=== PATIENT | male | born 1995 | race Caucasian/White ===

== ENCOUNTER → 2017-04-01 | Outpatient (CLI) | payer OTHER ==
--- NOTE | 2017-04-01 19:42 | REP ---
LEFT FOOT, FOUR VIEWS: HISTORY: Injury. There is no acute fracture or dislocation. The joint spaces are normal in appearance. IMPRESSION: There is no acute fracture or dislocation. Signed by Shaquille Landry MD 04/01/2017 07:43 P
--- NOTE | 2017-04-01 19:43 | REP ---
LEFT ANKLE, FOUR VIEWS: HISTORY: Injury. There is no acute fracture or dislocation. The joint space is normal in appearance. IMPRESSION: There is no acute fracture or dislocation. Signed by Shaquille Landry MD 04/01/2017 07:45 P
== END ==
LOC: M WUC 18:21
PROVIDERS: ATTEND Physician Assistant
DX: M79.672 Pain in left foot (principal)

== ENCOUNTER 2017-07-07 11:04 | Emergency (ER) | payer OTHER ==
[~2017-07-07] VITALS: Ht 180.3 cm; Wt 106.8 kg
[2017-07-07 11:05] VITALS: BP 142/79
[2017-07-07] MEDS ORDERED: NAPR500T PO (11:47)
== END 2017-07-07 12:06 | disposition home or self-care (01) ==
LOC: M ED 11:04
DX: K40.90 Unilateral inguinal hernia, without obstruction or gangrene, not specified as recurrent (principal)

== ENCOUNTER 2018-02-04 15:37 | Emergency (ER) | payer OTHER ==
[2018-02-04] MEDS: AUGMENTIN 875 MG TAB PO (16:53)
[2018-02-04] MEDS: PERCOCET 5MG/325MG TAB PO (16:53)
== END 2018-02-04 16:55 | disposition home or self-care (01) ==
LOC: M ED 15:37
DX: K05.229 Aggressive periodontitis, generalized, unspecified severity (principal); K02.9 Dental caries, unspecified
CPT/HCPCS: 99282

== ENCOUNTER → 2018-06-16 | Outpatient (REF) | payer OTHER | LOC: M LAB REF 17:03 | DX: J02.9 Acute pharyngitis, unspecified (principal) ==

== ENCOUNTER 2018-06-26 01:45 | Emergency (ER) | payer SELFPAY, OTHER | END 2018-06-26 04:01 | disposition home or self-care (01) | LOC: M ED 01:45 | DX: K12.0 Recurrent oral aphthae (principal) | CPT/HCPCS: 87880 ==

== ENCOUNTER 2018-06-27 18:42 | Emergency (ER) | payer SELFPAY ==
[2018-06-27 21:46] LABS: BASO # 0.1 10^3/uL (0.0-0.2); BASO % 0.4 % (0.0-1.0); EOS # 0.3 10^3/uL (0.0-0.50); EOS % 2.2 % (0.0-3.0); HEMATOCRIT 47.6 % (42.0-52.0); HEMOGLOBIN 15.7 g/dl (13.5-17.5); IMMATURE GRANULOCYTE % 0.5 % (0-3.0); LYMPH # 2.4 10^3/uL (1.5-6.5); LYMPH % 20.3 % (24.0-44.0); MEAN CORPUSCULAR HEMOGLOBIN 29.4 pg (27.0-33.0); MEAN CORPUSCULAR VOLUME 89.1 fl (80.0-96.0); MONO # 0.7 10^3/uL (0.0-0.8); MONO % 6.4 % (0.0-5.0); NEUTROPHILS # 8.1 10^3/uL (1.8-7.7); NEUTROPHILS % 70.2 % (36.0-66.0); PLATELET COUNT, AUTOMATED 381 10^3/uL (150-450); RED BLOOD COUNT 5.34 10^6/uL (4.30-6.10); RED CELL DISTRIBUTION WIDTH 12.3 % (11.5-14.5); WHITE BLOOD COUNT 11.6 10^3/uL (4.0-10.0)
[2018-06-27] MEDS: CEPHALEXIN 500 MG CAP PO (22:15)
== END 2018-06-27 22:24 | disposition home or self-care (01) ==
LOC: M ED 18:42
DX: J02.0 Streptococcal pharyngitis (principal); F90.9 Attention-deficit hyperactivity disorder, unspecified type; F41.9 Anxiety disorder, unspecified; Z79.899 Other long term (current) drug therapy; Z79.52 Long term (current) use of systemic steroids; Z79.2 Long term (current) use of antibiotics; Z85.828 Personal history of other malignant neoplasm of skin
CPT/HCPCS: 85025

== ENCOUNTER 2018-10-10 05:00 | Emergency (ER) | payer OTHER, SELFPAY ==
[2018-10-10 07:34] LABS: CHLAMYDIA DNA AMPLIFICATION NEGATIVE (NEGATIVE); GC DNA AMPLIFICATION NEGATIVE (NEGATIVE)
== END 2018-10-10 06:39 | disposition home or self-care (01) ==
LOC: M ED 05:00
DX: N48.89 Other specified disorders of penis (principal); F41.9 Anxiety disorder, unspecified; F90.9 Attention-deficit hyperactivity disorder, unspecified type; Z85.828 Personal history of other malignant neoplasm of skin
CPT/HCPCS: 87252

== ENCOUNTER 2019-09-18 01:04 | Emergency (ER) | payer MEDICAID, OTHER ==
[~2019-09-18] VITALS: Ht 177.8 cm; Wt 240.0 kg
[2019-09-18 01:04] VITALS: BP 132/80
[~2019-09-18 01:04] MED LIST: AUGM875T28 PO; ESCI10TA2; IBUP80TA; KEFL500C17 PO; NAPR-837 PO; NYST50SS; OXYC1TAB23 PO; PRED20TA; VYVA20CA
== END 2019-09-18 01:20 | disposition left against medical advice (07) ==
LOC: M ED 01:04
DX: Z11.3 Encounter for screening for infections with a predominantly sexual mode of transmission (principal); Z53.21 Procedure and treatment not carried out due to patient leaving prior to being seen by health care provider

== ENCOUNTER → 2019-10-07 | Outpatient (REF) | payer MEDICAID ==
[2019-10-07 20:05] LABS: INFLUENZA A AMPLIFICATION NEGATIVE (NEGATIVE); INFLUENZA B AMPLIFICATION POSITIVE (NEGATIVE)
== END ==
LOC: M LAB REF 17:42
PROVIDERS: ATTEND Physician Assistant
DX: J10.1 Influenza due to other identified influenza virus with other respiratory manifestations (principal)

== ENCOUNTER → 2019-12-16 | Outpatient (REF) | payer OTHER, MEDICAID ==
[2019-12-16 16:49] LABS: BASO # 0.1 10^3/uL (0.0-0.2); BASO % 0.5 % (0.0-1.0); EOS # 0.1 10^3/uL (0.0-0.5); EOS % 0.5 % (0.0-3.0); HEMATOCRIT 53.3 % (42.0-52.0); LYMPH # 2.8 10^3/uL (1.5-5.0); LYMPH % 15.4 % (24.0-44.0); MEAN CORPUSCULAR HEMOGLOBIN 29.3 pg (27.0-33.0); MEAN CORPUSCULAR HGB CONC 31.9 g/dl (32.0-36.5); MEAN CORPUSCULAR VOLUME 91.7 fl (80.0-96.0); MONO # 1.5 10^3/uL (0.0-0.8); MONO % 8.3 % (0.0-5.0); NEUTROPHILS # 13.8 10^3/uL (1.5-8.5); NEUTROPHILS % 74.9 % (36.0-66.0); PLATELET COUNT, AUTOMATED 311 10^3/uL (150-450); RED BLOOD COUNT 5.81 10^6/uL (4.30-6.10); WHITE BLOOD COUNT 18.4 10^3/uL (4.0-10.0)
[2019-12-16 17:33] LABS: HEMOGLOBIN A1c 5.7 %
[2019-12-16 17:37] LABS: ALBUMIN 4.6 GM/DL (3.2-5.2); ALT/SGPT 39 U/L (12-78); BILIRUBIN,TOTAL 0.6 MG/DL (0.2-1.0); BLOOD UREA NITROGEN 17 MG/DL (7-18); CALCIUM LEVEL 9.1 MG/DL (8.5-10.1); CARBON DIOXIDE LEVEL 30 MEQ/L (21-32); CHLORIDE LEVEL 103 MEQ/L (98-107); CHOLESTEROL LEVEL 194 MG/DL (<200); CHOLESTEROL RISK RATIO 4.041 (<5); CREATININE FOR GFR 1.04 MG/DL (0.70-1.30); FREE T4 1.05 NG/DL (0.76-1.46); GLOMERULAR FILTRATION RATE > 60.0 (>60); GLUCOSE, FASTING 85 MG/DL (70-100); HDL CHOLESTEROL 48 MG/DL (>40); LDL CHOLESTEROL 100 MG/DL (<100); NON-HDL-C 146 MG/DL; POTASSIUM SERUM 4.4 MEQ/L (3.5-5.1); SODIUM LEVEL 138 MEQ/L (136-145); TOTAL 25(OH) VITAMIN D 12.6 NG/ML (30.0-100.0); TOTAL PROTEIN 7.7 GM/DL (6.4-8.2); TRIGLYCERIDES LEVEL 229 MG/DL (<150)
== END ==
LOC: M LAB REF 15:55
PROVIDERS: ATTEND Physician Assistant
DX: Z68.37 Body mass index [BMI] 37.0-37.9, adult (principal); E66.09 Other obesity due to excess calories; F41.1 Generalized anxiety disorder; Z83.3 Family history of diabetes mellitus; R63.5 Abnormal weight gain

== ENCOUNTER 2020-09-12 13:27 | Emergency (ER) | payer MEDICAID, OTHER ==
[~2020-09-12] VITALS: Ht 177.8 cm; Wt 130.4 kg
[2020-09-12] MEDS ORDERED: ACETAMINOPHEN 500 MG TAB PO ONE (14:00)
[2020-09-12] MEDS ORDERED: IBUPROFEN 600MG TAB PO ONE (14:00)
[2020-09-12 14:43] VITALS: BP 127/63
== END 2020-09-12 14:44 | disposition home or self-care (01) ==
LOC: M ED 13:27
DX: Z11.59 Encounter for screening for other viral diseases (principal); R05 Cough; R50.9 Fever, unspecified; R53.83 Other fatigue; F90.9 Attention-deficit hyperactivity disorder, unspecified type; Z85.828 Personal history of other malignant neoplasm of skin
CPT/HCPCS: 99283; U0003

== ENCOUNTER 2020-11-19 13:44 | Emergency (ER) | payer OTHER ==
[~2020-11-19] VITALS: Ht 177.8 cm; Wt 129.3 kg
[~2020-11-19 13:44] MED LIST changes: +ESCI10TA16; -ESCI10TA2
[2020-11-19 13:45] VITALS: BP 133/90
--- OUTSIDE RECORDS SUMMARY | 2020-11-19 13:51 | CCD ---
Author Author [facility] Organization [facility] Address Unknown Phone Unavailable Care Team Providers Care Volunteer Services Supervisor Name Role Phone Sherry Tobar COCOA PRESS OPERATOR COCOA PRESS OPERATOR Unavailable Unavailable Tobar, F Sherry COCOA PRESS OPERATOR-BC Unavailable Unavailable Tobar, F Sherry COCOA PRESS OPERATOR-BC Unavailable Unavailable Tobar, F Sherry COCOA PRESS OPERATOR-BC Unavailable Unavailable Tobar, F Sherry COCOA PRESS OPERATOR-BC Unavailable Unavailable Tobar, F Sherry COCOA PRESS OPERATOR-BC Unavailable Unavailable Tobar, F Sherry COCOA PRESS OPERATOR-BC Unavailable Unavailable Tobar, F Sherry COCOA PRESS OPERATOR-BC Unavailable Unavailable Tobar, F Sherry COCOA PRESS OPERATOR-BC Unavailable Unavailable Tobar, F Sherry COCOA PRESS OPERATOR-BC Unavailable Unavailable Tobar, F Sherry COCOA PRESS OPERATOR-BC Unavailable Unavailable Tobar, F Sherry COCOA PRESS OPERATOR-BC Unavailable Unavailable Tobar, F Sherry COCOA PRESS OPERATOR-BC Unavailable Unavailable Tobar, F Sherry COCOA PRESS OPERATOR-BC Unavailable Unavailable Tobar, F Sherry COCOA PRESS OPERATOR-BC Unavailable Unavailable Tobar, F Sherry COCOA PRESS OPERATOR-BC Unavailable Unavailable Tobar, F Sherry COCOA PRESS OPERATOR-BC Unavailable Unavailable Tobar, F Sherry COCOA PRESS OPERATOR-BC Unavailable Unavailable Tobar, F Sherry COCOA PRESS OPERATOR-BC Unavailable Unavailable Tobar, F Sherry COCOA PRESS OPERATOR-BC Unavailable Unavailable Tobar, F Sherry COCOA PRESS OPERATOR-BC Unavailable Unavailable Tobar, F Sherry COCOA PRESS OPERATOR-BC Unavailable Unavailable Tobar, F Sherry COCOA PRESS OPERATOR-BC Unavailable Unavailable Re-disclosure Warning The records that you are about to access may contain information from federally-assisted alcohol or drug abuse programs. If such information is present, then the following federally mandated warning applies: This information has been disclosed to you from records protected by federal confidentiality rules (42 CFR part 2). The federal rules prohibit you from making any further disclosure of this information unless further disclosure is expressly permitted by the written consent of the person to whom it pertains or as otherwise permitted by 42 CFR part 2. A general authorization for the release of medical or other information is NOT sufficient for this purpose. The Federal rules restrict any use of the information to criminally investigate or prosecute any alcohol or drug abuse patient.The records that you are about to access may contain highly sensitive health information, the redisclosure of which is protected by Article 27-F of the [facility] Public Health law. If you continue you may have access to information: Regarding HIV / AIDS; Provided by facilities licensed or operated by the [facility] Office of Mental Health; or Provided by the [facility] Office for People With Developmental Disabilities. If such information is present, then the following [facility] mandated warning applies: This information has been disclosed to you from confidential records which are protected by state law. State law prohibits you from making any further disclosure of this information without the specific written consent of the person to whom it pertains, or as otherwise permitted by law. Any unauthorized further disclosure in violation of state law may result in a fine or penitentiary sentence or both. A general authorization for the release of medical or other information is NOT sufficient authorization for further disc losure. Family History Family Member Name Family Member Gender Family Member Status Date o f Status Description Data Source(s) Unknown Male Problem MEDENT ([facility]) Unknown Unknown Problem [facility] ([facility] mother Encounters Encounter Providers Location Date Indications Data Source(s ) Outpatient Attender: MANJULA PRABHAKAR 01/08/2020 10:38:01 AM EDT [facility] Outpatient Attender: Sherry PRABHAKAR 12/24/2019 12: 43:02 PM [facility] Outpatient Attender: MANJULA PRABHAKAR 12/24/2019 12:43:01 PM [facility] Outpatient Attender: MANJULA PRABHAKAR 12/22/2019 12:44:01 PM [facility] Outpatient Attender: Sherry PRABHAKAR 12/22/2019 12: 43:02 PM [facility] Outpatient Attender: MANJULA PRABHAKAR 12/16/2019 12:07:00 PM [facility] Outpatient Attender: MANJULA PRABHAKAR 12/16/2019 12:06:00 PM [facility] Outpatient Attender: MANJULA PRABHAKAR 12/16/2019 12:05:00 PM [facility] Outpatient Attender: MANJULA PRABHAKAR 12/16/2019 09:18:03 AM [facility] Outpatient Attender: MANJULA PRABHAKAR 12/16/2019 08:38:00 AM [facility] Outpatient Attender: MANJULA PRABHAKAR 12/16/2019 08:33:01 AM [facility] Outpatient Attender: MANJULA PRABHAKAR 12/16/2019 08:19:[address] [facility] Outpatient Attender: MANJULA Tobar COCOA PRESS OPERATOR FP 12/01/2019 01:53:[address] [facility] Outpatient Attender: MANJULA Tobar COCOA PRESS OPERATOR FP 12/01/2019 01:51:[address] [facility] Insurance Providers Payer name Policy type / Coverage type Policy ID Covered libertarian ID Covered libertarian's relationship to lopez Policy Lopez Plan Information [employer] COMMUNITY PLAN MCDHMO [id number] SP [id number] UNHC COMMUNITY PLAN MCDO [id number] SP [id number] EMEDNY [id number] SP [id number] Medicaid S [id number] S [id number] Managed Care - [facility] Community Plan P [id number] S [id number] MEDICAID [id number] SP [id number] Medicaid S [id number] S [id number] United Healthcare Essential Plan P [id number] S [id number] Self Pay P [id number] S [id number] United Healthcare Essential Plan P [id number] S [id number] UNHC COMMUNITY PLAN MCDO [id number] SP [id number] United Healthcare Essential Plan S [id number] S [id number] Self Pay P [id number] S [id number] SELF PAY ONLY [id number] SP [id number] Managed Care - Community Plan United Healthcare P [id number] S [id number] UNHC COMMUNITY PLAN MCDO [id number] SP [id number] Managed Care - Community Plan United Healthcare P [id number] S [id number] Medicaid S [id number] S [id number] United Healthcare [facility] Health Maintenance Organization (HMO) [id number] Self [id number] Managed Care - Community Plan United Healthcare P [id number] S [id number] Medicaid S [id number] S [id number] United [facility] Maintenance Organization (HMO) [id number] Self [id number] UNITED HEALTHCARE(MCAID) O [id number] S [id number] United [facility] Maintenance Organization (HMO) [id number] Self [id number] [facility] (HMO) [id number] Self [id number] United CR/[facility] Maintenance Organization (HMO) [id number] Self [id number] United HLCR/Community [facility] Maintenance Organization (HMO) Self MEDICAID [id number] SP [id number] SELF PAY UNAVAILABLE UNAVAILA BLE [id number] Problems, Conditions, and Diagnoses Code Display Name Description Problem Type Effective Dates Data Source(s) V05.9 Vaccination Vaccination 12/22/2019 12:42:50 PM [facility] [id number] Acute upper respiratory infection, unspe cified Acute upper respiratory infection, unspecified 12/16/2019 09:17:56 AM [facility] [id number] Excessive weight gain Excessive weight gain 12/16/2019 09:17:56 AM [facility] V05.9 Encounter for immunization Encounter for immunization 12/16/2019 09:17:56 AM [facility] V85.37 BMI 37.0-37.9 BMI 37.0-37.9 12/16/2019 09:17:56 AM [facility] 278.00 Obesity Obesity 12/16/2019 09:17:56 AM ES T [facility] 300.02 Generalized anxiety disorder Generalized anxiety disor raul 12/16/2019 09:17:56 AM [facility] V18.0 Family history of diabetes mellitus Family history of diabetes mellitus 12/16/2019 09:17:56 AM [facility] V70.0 Encounter for general adult medical exam ination with abnormal findings Encounter for general adult medical examination with abnormal findings 12/16/2019 09:17:56 AM [facility] Results ID Date Data Source [id number] 09/12/2020 02:18:00 PM EST [facility] Name Value Range Interpretation Code Description Data Kerry rce(s) Supporting Document(s) SARS coronavirus 2 RNA [facility] This lab was ordered by [facility] and reported by [facility]. ID Date Data Source [id number] 12/16/2019 09:40:00 AM [facility] Name Value Range Interpretation Code Description Data Kerry rce(s) Supporting Document(s) HCT 53.3 % 42.0-52.0 H [facility] HGB 17.0 g/dL 13.5-17.5 N [facility] MCH 31.9 G/DL pg 32.0-36.5 L [facility] MCHC 29.3 PG % 27.0-33.0 N [facility] PLATELETS 311 10 10*3/mm3 150-450 N [facility] RBC 5.81 10 10*6/mm3 4.30-6.10 N [facility] RDW 13.1 % 11.5-14.5 N [facility] WBC TOTAL 18.4 4.0-10.0 H [facility] ID Date Data Source [id number] 12/16/2019 09:40:00 AM [facility] Name Value Range Interpretation Code Description Data Kerry rce(s) Supporting Document(s) HGBA1C 5.7 % N [facility] ID Date Data Source [id number] 12/16/2019 09:40:00 AM [facility] Name Value Range Interpretation Code Description Data Kerry rce(s) Supporting Document(s) BG FASTING 85 mg/dL 70-100 N [facility] T4, FREE 1.05 ng/dL 0.76-1.46 N [facility] TSH 1.320 microintl units/mL 0.358-3.740 N [facility] VIT D25 TOT 12.6 ng/mL 30.0-100.0 L [facility] ID Date Data Source [id number] 12/16/2019 08:37:09 AM [facility] Measurements & CalculationsHeight: 70 inches (5 ft. 10 in.) 177.80 cm Weight: 261 pounds 118.64 kg Body Mass Index (BMI): 37.58BMI Interpretation: ObeseBody Surface Area (BSA): 2.34Weight Management Education Done (Nutrition/Physical Activity)Vital SignsTemperature: 97.7F oral Pulse Rate: 73 beats/minuteRespiratory Rate: 17 respirations/minuteBlood Pressure: 133/82 right arm sitting automaticO2 Saturation: 96% room airVital Signs performed by: Jenna Lynne LPN, December 16, 2019 8:55 AMVital Signs performed by: Trino MURPHY, December 16, 2019 8:57 AMInitial Intake Information from: patientRoom #: 7Smoking, Tobacco, Vaping or Smoke Exposure StatusSmoke Status: never smokerTobacco Use: NoDo you vape? NoPassive Smoke Exposure: YesPassive Smoke Exposure comments: insideHealthcare HistorySince your last office visit...Have you been admitted to the hospital? NoHave you been to an emergency room (ER) or urgent care clinic? Yes - [facility] ([facility]) or urgent care date reported today: 12/10/2019Have you seen another healthcare provider? NoHave you seen a dentist? NoRate Your HealthIn general, would you say your health is? GoodPain AssessmentAre you currently having any pain which... You would like your provider to address? No Affects your activity level? NoDepression Screening - PHQ-2Over the last two weeks, have you... Had little interest or pleasure in doing things? Several days Been feeling down, depressed, or hopeless? Several days PHQ-2 Score: 2Anxiety Screening - JANUSZ-2Over the last two weeks, have you been... Feeling nervous, anxious, or on edge? Nearly every day Unable to stop or control worrying? Nearly every day JANUSZ-2 Score: 6Infectious Disease / Travel ScreeningRecent travel for you, your family, and/or any sexual partners? NoGeneralized Anxiety Disorder 7-Item Screening (JANUSZ-7)Answer Guide:0 = Not at all1 = Several days2 = Over half the days3 = Nearly every dayOver the last 2 weeks, how often have you been bothered by the following problems?Feeling nervous, anxious, or on edge: 3Not being able to stop or control worryinWorrying too much about different things: 3Trouble relaxinBeing so restless that it's hard to sit still: 2Becoming easily annoyed or irritable: 1Feeling afraid as if something awful might happen: 2Answer Guide:0 = Not difficult at all1 = Somewhat difficult2 = Very difficult3 = Extremely difficultHow difficult have these made it for you to do your work, take care of things at home, or get along with other people? 2GAD-7 Screening Results JANUSZ-2 Score: 6GAD-7 Score: 17Functional Impairment: Very difficultRecommendation: Severe anxietyPHQ-9 1. Over the last 2 weeks, patient reports the following frequency of symptoms: a. Little interest or pleasure in doing things - Several days b. Feeling down, depressed, or hopeless -Several days c. Trouble falling asleep, staying asleep, or sleeping too much -Nearly every day d. Feeling tired or having little energy -Nearly every day e. Poor appetite or overeating -Several days f. Feeling bad about yourself, feeling that you are a failure, or feeling that you have let yourself or your family down -Nearly every day g. Trouble concentrating on things such as reading the newspaper or watching television -Nearly every day h. Moving or speaking so slowly that other people could have noticed. Or being so fidgety or restless that you have been moving around a lot more than usual -More than half the days i. Thinking that you would be better off or that you want to hurt yourself in some way -Not at all2. If you checked off any problems, how difficult have these problems made it for you to do your work, take care of things at home, or get along with other people? -Very DifficultToday's PHQ-9 Results Score: 17 Severity: Moderately Severe Diagnosis Recommendation: No recommendation Functional Impairment: Very DifficultDepression Screening Follow-Up ActionToday's Follow-Up Action Depression follow-up done. Follow-Up Action: Prescribed antidepressant medicationPRAPARE Sociodemographic Characteristics Race: White Ethnicity: Not or Preferred Language: EnglishFamily and Home Address: [address] [place] [address] What is your housing situation today? I have housing Are you worried about losing your housing? NoMoney and Resources What is the highest level of school that you have finished? some college Employed? 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 Denies Insecurity: food, utilities, clothing, early childhood worker, phone, legal services, otherIn the past year, have you had trouble affording costs associated with health insurance (such as deductibles, co-payments, etc.)? NoSocial and Emotional Health How often do you see or talk to people that you care about and feel close to? More than 5 times a week How stressed are you? Very muchAdditional Optional Domains In the past 3 months, have you spent more than 2 nights in a row in a penitentiary, group home, snf center or juvenile correctional facility? No Has lack of transportation kept you from medical appointments or from getting your medications? NoIn the past year, have you had trouble getting any of the following when it was really needed (check all that apply)?noneIn the past year, have you had trouble paying the costs associated with health care or medicine (such as co-payments, costs for services, prices of medicines)? NoHow confident are you that you can control and manage most of your health problems? Very confident Are you a refugee? No (Country of origin: [facility]) Do you feel physically and emotionally safe where you live? Yes In the past year, have you been afraid of a partner, ex-partner? NoScreening, Brief Intervention, & Referral to Treatment (SBIRT)Pre-Screening Questions How many times have you have 5 or more drinks in a day? 6How many times have you used an illegal drug or used a prescription medication for a non-medical reason? 0Performed by: Jenna Lynne LPN, December 16, 2019 8:50 AMPatient History Medical History:wears glassesAttention Deficit Disorder with HyperactivityAnxiety/DepressionSurgical History:tonsillectomycancerous mole removed from right side of abdomen as childFamily History:FH Hepatitis - mother and FatherFH Diabetes - Maternal grandparents and paternal grandmotherLyme Disease (Father)Mother- bipolarSocial/Personal History:Lives Aunt and Uncle 1 younger sister , 1 younger cousinFather lives here in [place], daily contact with FatherMother also lives here in [place], ocassional contact Alcohol Use: CurrentlyFrequency: holidays/special occasions onlyAlcohol Education: givenDrug Use: NeverChief Complaintannual examHistory of Present Illness (HPI)24 yo male here for annual PE. Refuses flu vaccine today. Due for Tdap, last in 2005. Pt states he has had about a 20 lb weight gain in the past 2.5 months and a couple days of constantly needing to urinate. Pt states he would like to lose some weight and make better choices. He reports he likes sweets and his girlfriend likes fast food. Pt state he has had some post nasal drainage over the last week. Pt reports he is on prednisone taper, last dose today. Put on this by [employer] for laryngitis reportedly. Pt reports anxiety/depression. Reports "really bad highs and lows". Pt previously took Lexapro, only side effect was fidgity, but states he was taking Vyvanse at the same time as well. HPI performed by: Trino MURPHY, December 16, 2019 8:57 AMTransitions of Care InboundProblem ReviewProblem List was reviewed and/or updated during this visit.Medication Reconciliation & ReviewMedication List was reviewed and/or updated during this visit, including review of any [id number] medications, herbal therapies, and/or supplements.Allergy ReviewAllergy List was reviewed and/or updated during this visit.Adult Preventive CareProvider Calculated and Reviewed all Clinical Protocols for patient today. Labs/Meds/Other Counseling- Nutrition and Physical Activity:BMI Interpretation: Obese (12/16/2019) Counseling: Done (12/16/2019) Physical Activity: Done (12/16/2019)Review of Systems General: Denies loss of appetite, chills, dizziness, fatigue, fever, headache, feeling ill. Eyes: Denies blurring of vision, double vision. Ears/Nose/Throat: Complains of nasal congestion. Denies earache, sore throat, difficulty swallowing, swollen glands. Cardiovascular: Denies chest pain, palpitations, feeling faint. Respiratory: Denies cough, shortness of breath, wheezing. Gastrointestinal: Denies nausea, vomiting, diarrhea, constipation, pain or discomfort. Musculoskeletal: Denies joint pain, body aches. Skin: Denies rash, suspicious lesions. Neurologic: Denies weakness, numbness/tingling. Psychiatric: Complains of see HPI, depression, anxiety. Denies suicidal ideation. Physical ExamGeneral Appearance: well nourished, well hydrated, no acute distressEyes, External: conjunctivae and lids normal, EO MIExternal Ears: normal, no lesions or deformitiesHearing: grossly intactOtoscopy: canals clear, tympanic membranes intact, no fluid, light reflex intact bilaterallyExternal Nose: normal, no lesions or deformitiesNasal: mucosa, septum, and turbinates normal, nares patentLips/Teeth/Gums: no gingival inflammation, no labial lesionsPharynx: tongue normal, posterior pharynx without erythema or exudate, no thrush/aphthous ulcerNeck: supple, no masses, trachea midline, full range of motion of neckThyroid: no nodules, masses, tenderness, or enlargementRespiratory, Auscultation: clear to auscultation bilaterally; no rales, rhonchi, or wheezesRespiratory, Effort: no intercostal retractions or use of accessory musclesCardiovascular, Auscultation: S1, S2 audible; no murmur, rub, or gallop; RRRPeripheral Circulation: no clubbing, cyanosis, edema, or varicositiesAbdomen: soft, non-tender, no masses, bowel sounds normalGait & Station: normalSkin, Inspection: no rashes, lesions, or ulcerationsOrientation: oriented to time, place, and personMood & Affect: no depression, anxiety, or agitationJudgment & Insight: intactCare Management Plan Care Team Assigned Risk Level: dTransitions of CareInboundRate Your HealthIn general, would you say your health is? GoodAssessment & Plan Problems:Added: Vaccination (ICD-V05.9) (ICD10- Z23)Encounter for general adult medical examination with abnormal findings (ICD- V70.0) (UFY46-S94.01) Assessment: Instructions: Recommend annual medical appointments. Recommend routine dental and vision care. Recommend influenza vaccines annually and tetanus boosters every 10 years.Family history of diabetes mellitus (ICD-V18.0) (QLL94-K14.3) Assessment: Instructions: Fasting labs have been ordered for you today. Will notify you of results.Generalized anxiety disorder (ICD-300.02) (WQO35-W35.1) Assessment: Instructions: As above.Obesity (ICD-278.00) (TVK18-Z13.09) Assessment: Instructions: Recommend healthy lifestyle modification. Encourage portion control, healthy food choices, and increasing routine physical activity. Recommendation is for 150 minutes throughout the week of cardiovascular exercise.BMI 37.0-37.9 (ICD-V85.37) (JOJ47-D78.37) Assessment: Instructions: As above.Excessive weight gain (UMR35-B47.5) Assessment: Instructions: As above.Encounter for immunization (ICD-V05.9) (LKC09-Q22) Assessment: Instructions: Tdap today.Acute upper respiratory infection, unspecified (NYN27-Z53.9) Assessment: Instructions: Finish prednisone today. Recommend supportive measures, increase rest, plenty of fluids. May use Zyrtec or Mucinex as needed.Assessed:Chronic depression (ICD-311) (FWQ10-G43.1) Assessment: Instructions: Start Lexapro 10mg once daily. Call for any concerns. Follow-up in 1 month. If symptoms become difficult to manage, consider psychiatry referral in the future.Attention-deficit hyperactivity disorder, combined type (NVL72-N42.2) Assessment: Instructions: Will hold off on treatment of ADHD at this time. As above.Removed:EYE PAIN, LEFT (ICD- 379.91) (MZA80-L08.12), Acute pharyngitis due to other specified organisms (QAO11-X98.8)Patient Instructions/Care Plan: Encounter for general adult medical examination with abnormal findings: Recommend annual medical appointments. Recommend routine dental and vision care. Recommend influenza vaccines annually and tetanus boosters every 10 years.Family history of diabetes mellitus: Fasting labs have been ordered for you today. Will notify you of results.Chronic depression: Start Lexapro 10mg once daily. Call for any concerns. Follow-up in 1 month. If symptoms become difficult to manage, consider psychiatry referral in the future.Generalized anxiety disorder: As above.Attention-deficit hyperactivity disorder- combined type: Will hold off on treatment of ADHD at this time. As above.Obesity: Recommend healthy lifestyle modification. Encourage portion control, healthy food choices, and increasing routine physical activity. Recommendation is for 150 minutes throughout the week of cardiovascular exercise.BMI 37.0-37.9: As above.Excessive weight gain: As above.Encounter for immunization: Tdap today.Acute upper respiratory infection- unspecified: Finish prednisone today. Recommend supportive measures, increase rest, plenty of fluids. May use Zyrtec or Mucinex as needed. Plan developed in collaboration with patient and/or familyM edications:LEXAPRO 10 MG ORAL TABLETIBUPROFEN 800 MG TABSMedication Changes:New Prescription:LEXAPRO 10 MG ORAL TABLET-Take 1 tablet by mouth once daily Qty: 30[Tablet] Refills: 1 Method: ElectronicRemoved:AMOXICILLIN 500 MG CAPS-1 tablet by mouth every 8 hours until gone, LEXAPRO 10 MG ORAL TABLET-One tablet by mouth every day, VYVANSE 20 MG ORAL CAPSULE-One po qd.Allergies:* SEASONAL ALLERGIES (Mild)Orders:Tdap (5) [CPT-44616] COMP METABOLIC PANEL [CPT-36770] CBC W/DIFF [CPT-85572] HgBA1c [CPT-55491] LIPID PANEL [CPT-90066] TSH [CPT-75618] T- 4 free [CPT-10285] Vitamin D 250H Unspecified [CPT-13232] 79199-Tes Vst-Est Level I [CPT-98733] 28155 - Venipuncture [CPT-16543] 29326 - Immo Admin (over 19 yrs), 1st Vaccine [CPT-80122] Preventive, Est, (18-39) [CPT-64866] Follow-Up Return to clinic: in 4 weeks for follow upAdditional Follow-Up: med follow- upClinical Visit Summary CompletedMedications:LEXAPRO 10 MG ORAL TABLET (ESCITALOPRAM OXALATE) Take 1 tablet by mouth once daily #30[Tablet] x 1 Route:ORAL Entered and Authorized by: Trino MURPHY Method used: Electronically to [facility]* (retail) [address] [place] [address] Fax: Note to Pharmacy: Route: ORAL; Indications: CHRONIC DEPRESSION RxID: [id number]][Immunization Management]Labs In-House Blood TestsDate/Time Collected: December 16, 2019 9:50 AMTest Result Reference Range Normal ValueComments: blood draw done in office done in the right ac tolerated well Praveen Alexis MA, December 16, 2019 9:50 AMThe patient was counseled by the physician on immunizations due, and on the risks and benefits of immunizations.Vaccines Administered/Entered:Vaccination Group: InfluenzaSeries: 2 NOT GIVENVaccination: Flucelvax Quadrivalent PF (4y+) AdultReason Not Given: Patient decisionEntered Date: 12/16/2019 12:00 AMEntered by: Jenna Lnyne LPN Vaccination Group: TdapSeries: 1Vaccination: Boostrix - AdultMfr / Lot# / Exp.Date: BOLD Guidance / 745N2 / 2Amt. Given / Route / Site: 0.5 mL / IM / Left DeltoidNDC / CVX: [id number] / 115Administered Date: 12/16/2019 10:35VFC Eligibility: Not VFC EligibleVIS Date: 12/14/2014VIS Given / VIS Given On: Yes / 12/16/2019Comments: Administered by: Jenna Lynne LPN Name Value Range Interpretation Code Description Data Kerry rce(s) Supporting Document(s) Procedure
--- OUTSIDE RECORDS SUMMARY | 2020-11-19 14:32 | CCD ---
Author Author [facility] Organization [facility] Address Unknown Phone Unavailable Care Team Providers Care Signal Supervisor Name Role Phone Sherry Tobar HEALTH AND FITNESS PROFESSOR HEALTH AND FITNESS PROFESSOR Unavailable Unavailable Tobar, F Sherry HEALTH AND FITNESS PROFESSOR-BC Unavailable Unavailable Tobar, F Sherry HEALTH AND FITNESS PROFESSOR-BC Unavailable Unavailable Tobar, F Sherry HEALTH AND FITNESS PROFESSOR-BC Unavailable Unavailable Tobar, F Sherry HEALTH AND FITNESS PROFESSOR-BC Unavailable Unavailable Tobar, F Sherry HEALTH AND FITNESS PROFESSOR-BC Unavailable Unavailable Tobar, F Sherry HEALTH AND FITNESS PROFESSOR-BC Unavailable Unavailable Tobar, F Sherry HEALTH AND FITNESS PROFESSOR-BC Unavailable Unavailable Tobar, F Sherry HEALTH AND FITNESS PROFESSOR-BC Unavailable Unavailable Tobar, F Sherry HEALTH AND FITNESS PROFESSOR-BC Unavailable Unavailable Tobar, F Sherry HEALTH AND FITNESS PROFESSOR-BC Unavailable Unavailable Tobar, F Sherry HEALTH AND FITNESS PROFESSOR-BC Unavailable Unavailable Tobar, F Sherry HEALTH AND FITNESS PROFESSOR-BC Unavailable Unavailable Tobar, F Sherry HEALTH AND FITNESS PROFESSOR-BC Unavailable Unavailable Tobar, F Sherry HEALTH AND FITNESS PROFESSOR-BC Unavailable Unavailable Tobar, F Sherry HEALTH AND FITNESS PROFESSOR-BC Unavailable Unavailable Tobar, F Sherry HEALTH AND FITNESS PROFESSOR-BC Unavailable Unavailable Tobar, F Sherry HEALTH AND FITNESS PROFESSOR-BC Unavailable Unavailable Tobar, F Sherry HEALTH AND FITNESS PROFESSOR-BC Unavailable Unavailable Tobar, F Sherry HEALTH AND FITNESS PROFESSOR-BC Unavailable Unavailable Tobar, F Sherry HEALTH AND FITNESS PROFESSOR-BC Unavailable Unavailable Tobar, F Sherry HEALTH AND FITNESS PROFESSOR-BC Unavailable Unavailable Tobar, F Sherry HEALTH AND FITNESS PROFESSOR-BC Unavailable Unavailable Re-disclosure Warning The records that [...] is protected by Article 27-F of the [facility] Public Health law. If you continue you may have access to information: Regarding HIV / AIDS; Provided by facilities licensed or operated by the [facility] Office of Mental Health; or Provided by the [facility] Office for People With Developmental Disabilities. If such information is present, then the following [facility] mandated warning applies: This information has [...] law may result in a fine or usp sentence or both. A general authorization for [...] Attender: MANJULA PRABHAKAR 01/08/2020 10:38:01 AM EDT [facility] Outpatient Attender: Sherry PRABHAKAR 12/24/2019 12: 43:02 PM [facility] Outpatient Attender: MANJULA PRABHAKAR 12/24/2019 12:43:01 PM [facility] Outpatient Attender: MANJULA PRABHAKAR 12/22/2019 12:44:01 PM [facility] Outpatient Attender: Sherry PRABHAKAR 12/22/2019 12: 43:02 PM [facility] Outpatient Attender: MANJULA PRABHAKAR 12/16/2019 12:07:00 PM [facility] Outpatient Attender: MANJULA PRABHAKAR 12/16/2019 12:06:00 PM [facility] Outpatient Attender: MANJULA PRABHAKAR 12/16/2019 12:05:00 PM [facility] Outpatient Attender: MANJULA PRABHAKAR 12/16/2019 09:18:03 AM [facility] Outpatient Attender: MANJULA PRABHAKAR 12/16/2019 08:38:00 AM [facility] Outpatient Attender: MANJULA PRABHAKAR 12/16/2019 08:33:01 AM [facility] Outpatient Attender: MANJULA PRABHAKAR 12/16/2019 08:19:01 AM EST [facility] Outpatient Attender: MANJULA Tobar HEALTH AND FITNESS PROFESSOR FP 12/01/2019 01:53:01 PM EST [facility] Outpatient Attender: MANJULA Tobar HEALTH AND FITNESS PROFESSOR FP 12/01/2019 01:51:00 PM EST [facility] Insurance Providers Payer name Policy type / Coverage type Policy ID Covered alliance party ID Covered alliance party's relationship to lopez Policy Lopez Plan Information [employer]HC COMMUNITY PLAN MCDHMO [id number] SP [id number] UNHC COMMUNITY PLAN MCDO [id number] SP [id number] [place] [id number] SP [id number] Medicaid S [id number] S [id number] Managed Care - [facility] Community Plan P [id number] S [id number] MEDICAID [id number] SP [id number] Medicaid S [id number] S [id number] United Healthcare Essential Plan P [id number] S [id number] Self Pay P [id number] S [id number] United Healthcare Essential Plan P [id number] S [id number] UNHC COMMUNITY PLAN MCDO [id number] SP [id number] United Healthcare Essential Plan S [id number] S [id number] Self Pay P [id number] S [id number] SELF PAY ONLY [id number] SP [id number] Managed Care - Community Plan United Healthcare P [id number] S [id number] UNHC COMMUNITY PLAN MCDO [id number] SP [id number] Managed Care - Community Plan United Healthcare P [id number] S [id number] Medicaid S [id number] S [id number] United Healthcare [facility] Health Maintenance Organization (HMO) [id number] Self [id number] Managed Care - Community Plan United Healthcare P [id number] S [id number] Medicaid S [id number] S [id number] United [facility] Health Maintenance Organization (HMO) [id number] Self [id number] UNITED HEALTHCARE(MCAID) O [id number] S [id number] United [facility] Health Maintenance Organization (HMO) [id number] [facility] [id number] [facility] ([facility]) [id number] Self [id number] United CR/Community [facility] Health Maintenance Organization (HMO) [id number] Self [id number] United HLCR/Community [facility] Health Maintenance Organization (HMO) Self MEDICAID [id number] SP [id number] SELF PAY UNAVAILABLE UNAVAILA BLE [id number] Problems, Conditions, and Diagnoses Code Display Name Description Problem Type Effective Dates Data Source(s) V05.9 Vaccination Vaccination 12/22/2019 12:42:50 PM [facility] [id number] Acute upper respiratory infection, unspe cified Acute upper respiratory infection, unspecified 12/16/2019 09:17:[address] [facility] [id number] Excessive weight gain Excessive weight gain 12/16/2019 09:17:56 AM [facility] V05.9 Encounter for immunization Encounter for immunization 12/16/2019 09:17:56 AM [facility] V85.37 BMI 37.0-37.9 BMI 37.0-37.9 12/16/2019 09:17:56 AM [facility] 278.00 Obesity Obesity 12/16/2019 09:17:56 AM ES T [facility] 300.02 Generalized anxiety disorder Generalized anxiety disor raul 12/16/2019 09:17:56 AM [facility] V18.0 Family history of diabetes mellitus Family history of diabetes mellitus 12/16/2019 09:17:56 AM [facility] V70.0 Encounter for general adult medical exam ination with abnormal findings Encounter for general adult medical examination with abnormal findings 12/16/2019 09:17:56 AM [facility] Results ID Date Data Source [id number] 09/12/2020 02:18:00 PM EST [facility] Name Value Range Interpretation Code Description Data Kerry rce(s) Supporting Document(s) SARS coronavirus 2 RNA [facility] This lab was ordered by [facility] and reported by [facility]. ID Date Data Source [id number] 12/16/2019 09:40:00 AM [facility] Name Value Range Interpretation Code Description Data Kerry rce(s) Supporting Document(s) HCT 53.3 % 42.0-52.0 H [facility] HGB 17.0 g/dL 13.5-17.5 N [facility] MCH 31.9 G/DL pg 32.0-36.5 L [facility] MCHC 29.3 PG % 27.0-33.0 N [facility] PLATELETS 311 10 10*3/mm3 150-450 N [facility] RBC 5.81 10 10*6/mm3 4.30-6.10 N [facility] RDW 13.1 % 11.5-14.5 N [facility] WBC TOTAL 18.4 4.0-10.0 H [facility] ID Date Data Source [id number] 12/16/2019 09:40:00 AM [facility] Name Value Range Interpretation Code Description Data Kerry rce(s) Supporting Document(s) HGBA1C 5.7 % N [facility] ID Date Data Source [id number] 12/16/2019 09:40:00 AM [facility] Name Value Range Interpretation Code Description Data Kerry rce(s) Supporting Document(s) BG FASTING 85 mg/dL 70-100 N [facility] T4, FREE 1.05 ng/dL 0.76-1.46 N [facility] TSH 1.320 microintl units/mL 0.358-3.740 N [facility] VIT D25 TOT 12.6 ng/mL 30.0-100.0 L [facility] ID Date Data Source [id number] 12/16/2019 08:37:09 AM [facility] Measurements & CalculationsHeight: 70 inches (5 ft. [...] or Preferred Language: EnglishFamily and Home Address: [address] [place] [address] What is your housing situation today? I have housing Are you worried about losing your housing? NoMoney and Resources What is the highest level of school that you have finished? some college Employed? 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 Denies Insecurity: food, utilities, clothing, child care worker, phone, legal services, otherIn the past [...] 2 nights in a row in a usp, chcf, penitentiary center or juvenile correctional facility? No Has [...] you a refugee? No (Country of origin: [facility]) Do you feel physically and emotionally safe [...] , 1 younger cousinFather lives here in [place], daily contact with FatherMother also lives here in [place], ocassional contact Alcohol Use: CurrentlyFrequency: holidays/special occasions [...] last dose today. Put on this by [facility] for laryngitis reportedly. Pt reports anxiety/depression. Reports [...] during this visit, including review of any wqxs-aga-mkxostk medications, herbal therapies, and/or supplements.Allergy ReviewAllergy List [...] medical examination with abnormal findings (ICD- V70.0) (XOG31-B17.01) Assessment: Instructions: Recommend annual medical appointments. Recommend routine dental and vision care. Recommend influenza vaccines annually and tetanus boosters every 10 years.Family history of diabetes mellitus (ICD-V18.0) (HIQ27-F03.3) Assessment: Instructions: Fasting labs have been ordered for you today. Will notify you of results.Generalized anxiety disorder (ICD-300.02) (HMF25-Z45.1) Assessment: Instructions: As above.Obesity (ICD-278.00) (YMK21-Z71.09) Assessment: Instructions: Recommend healthy lifestyle modification. Encourage portion control, healthy food choices, and increasing routine physical activity. Recommendation is for 150 minutes throughout the week of cardiovascular exercise.BMI 37.0-37.9 (ICD-V85.37) (IPQ07-E50.37) Assessment: Instructions: As above.Excessive weight gain (BGI27-S44.5) Assessment: Instructions: As above.Encounter for immunization (ICD-V05.9) (VGO63-W13) Assessment: Instructions: Tdap today.Acute upper respiratory infection, unspecified (QBW71-D89.9) Assessment: Instructions: Finish prednisone today. Recommend supportive measures, increase rest, plenty of fluids. May use Zyrtec or Mucinex as needed.Assessed:Chronic depression (ICD-311) (TAN70-E53.1) Assessment: Instructions: Start Lexapro 10mg once daily. Call for any concerns. Follow-up in 1 month. If symptoms become difficult to manage, consider psychiatry referral in the future.Attention-deficit hyperactivity disorder, combined type (JHD21-S15.2) Assessment: Instructions: Will hold off on treatment of ADHD at this time. As above.Removed:EYE PAIN, LEFT (ICD- 379.91) (DUH08-I87.12), Acute pharyngitis due to other specified organisms (URT09-N26.8)Patient Instructions/Care Plan: Encounter for general adult medical [...] CAPSULE-One po qd.Allergies:* SEASONAL ALLERGIES (Mild)Orders:Tdap (5) [CPT-23334] COMP METABOLIC PANEL [CPT-01620] CBC W/DIFF [CPT-68483] HgBA1c [CPT-44280] LIPID PANEL [CPT-68708] TSH [CPT-38588] T- 4 free [CPT-67684] Vitamin D 250H Unspecified [CPT-79436] 33070-Agz Vst-Est Level I [CPT-31197] 09061 - Venipuncture [CPT-64273] 11998 - Immo Admin (over 19 yrs), 1st Vaccine [CPT-32075] Preventive, Est, (18-39) [CPT-12997] Follow-Up Return to clinic: in 4 weeks for follow upAdditional Follow-Up: med follow- upClinical Visit Summary CompletedMedications:LEXAPRO 10 MG ORAL TABLET (ESCITALOPRAM OXALATE) Take 1 tablet by mouth once daily #30[Tablet] x 1 Route:ORAL Entered and Authorized by: Trino MURPHY Method used: Electronically to [facility]* (retail) [address] [place] [address] Fax: Note to Pharmacy: Route: ORAL; Indications: CHRONIC DEPRESSION RxID: [id number]][Immunization Management]Labs In-House Blood TestsDate/Time Collected: December 16, [...] decisionEntered Date: 12/16/2019 12:00 AMEntered by: Jenna Lynne LPN Vaccination Group: TdapSeries: 1Vaccination: Boostrix - AdultMfr / Lot# / Exp.Date: Bookitit / [id number] / 2Amt. Given / Route / Site: 0.5 mL / IM / Left DeltoidNDC / CVX: [id number] / 115Administered Date: 12/16/2019 10:35VFC Eligibility: Not VFC EligibleVIS Date: 12/14/2014VIS Given / VIS Given On: Yes / 12/16/2019Comments: Administered by: Jenna Lynne LPN Name Value Range Interpretation Code Description Data Kerry rce(s) Supporting Document(s) Procedure
--- NOTE | 2020-11-19 15:19 | REP ---
INDICATION: cough, sob. COMPARISON: Comparison chest x-ray December 25, 2015.. TECHNIQUE: Portable upright AP chest radiograph. FINDINGS: On today's chest x-ray there is a fairly large opacity which appears to be a pleural based soft tissue mass at the level of the 1st thoracic rib anteriorly on the left. This is a new finding. Heart is not enlarged. Lungs are otherwise clear. Pleural angles are sharp. No significant bony abnormality is appreciated. IMPRESSION: Pleural based mass projects in the left apex at the level of the anterior end of the left 1st rib. Approximately [address] study for further evaluation. Preferably with IV contrast. Otherwise no active disease. <Electronically signed by Mikey Cano > 11/19/20 [id number]
[2020-11-19 15:55] LABS: BASO # 0.1 10^3/uL (0.0-0.2); BASO % 0.7 % (0.0-1.0); EOS # 0.3 10^3/uL (0.0-0.5); EOS % 3.4 % (0.0-3.0); HEMATOCRIT 54.9 % (42.0-52.0); HEMOGLOBIN 17.8 g/dl (13.5-17.5); LYMPH # 2.5 10^3/uL (1.5-5.0); LYMPH % 34.2 % (24.0-44.0); MEAN CORPUSCULAR HGB CONC 32.4 g/dl (32.0-36.5); MEAN CORPUSCULAR VOLUME 89.6 fl (80.0-96.0); MONO # 0.6 10^3/uL (0.0-0.8); MONO % 7.8 % (0.0-5.0); NEUTROPHILS # 3.9 10^3/uL (1.5-8.5); NEUTROPHILS % 53.6 % (36.0-66.0); PLATELET COUNT, AUTOMATED 275 10^3/uL (150-450); RED BLOOD COUNT 6.13 10^6/uL (4.30-6.10); WHITE BLOOD COUNT 7.3 10^3/uL (4.0-10.0)
[2020-11-19] MEDS ORDERED: ISOVUE-370 76% 100ML VIAL As Ordered ONE (15:58)
[2020-11-19 16:14] LABS: ERYTHROCYTE SEDIMENTATION RATE 1 mm/hr (0-15)
[2020-11-19 16:23] LABS: ALBUMIN 4.5 GM/DL (3.2-5.2); ALT/SGPT 53 U/L (12-78); BILIRUBIN,DIRECT 0.1 MG/DL (0.0-0.2); BILIRUBIN,TOTAL 0.7 MG/DL (0.2-1.0); CK-MB VALUE MASS 1.6 NG/ML (<3.6); CPK CREATINE PHOSPHOKINASE 175 U/L (39-308); LDH LACTATE DEHYDROGENASE 212 U/L (87-241); MAGNESIUM LEVEL 2.2 MG/DL (1.8-2.4); MB/CK RELATIVE INDEX 0.91 (< OR =4); TOTAL PROTEIN 7.7 GM/DL (6.4-8.2); TROPONIN I < 0.02 NG/ML (< 0.10)
--- NOTE | 2020-11-19 16:35 | REP ---
INDICATION: pleural mass on xray. COMPARISON: Comparison chest x-ray is from 19 November 2020. Prior comparison chest x-ray is from December 25, 2015.. TECHNIQUE: Helical scanning is acquired following the intravenous injection of 100 mL of Isovue 370. 3 mm axial slices are re-formatted. Coronal and sagittal MPR images are generated. FINDINGS: There is no evidence of pleural or pericardial effusion. The lung navarro are clear. No infiltrate is seen. No hilar adenopathy or mediastinal adenopathy is seen. There is a low-density well-circumscribed pleural based mass lesion along the anterior chest wall in the left upper parasternal region. This measures 5.1 cm in greatest length by 2.2 cm in greatest thickness by 3.8 cm in greatest right to left width. This has homogeneous low density internally with a mean Hounsfield unit density of 10 Hounsfield units, these features suggest a cyst. There is no evidence of internal enhancement or wall thickening. The left internal mammary artery is displaced medially and posteriorly by the lesion. No other mediastinal mass is seen. No extra thoracic mass or adenopathy is observed. IMPRESSION: There is a homogeneous low-density pleural based 5 cm lesion in the left upper parasternal region suggesting a cystic lesion. It is adjacent to and displaces the internal mammary artery. Thymic cyst is felt to be the most likely etiology versus necrotic adenopathy/lymphoma or other neoplasm.. It was not visible radiographically in 2016. It may be possible to further characterize the lesion by parasternal sonography or, by MRI scanning. No other acute abnormality seen. <Electronically signed by Mikey Cano > 11/19/20 [id number]
--- NOTE | 2020-11-19 16:37 | REP ---
INDICATION: diarrhea, weight gain, concern cancer. COMPARISON: None. TECHNIQUE: Helical scanning was acquired and 4 mm axial images are re-formatted. Coronal and sagittal MPR images were generated and reviewed. The contrast enhancement dose is 100 mL of intravenous Isovue 370. FINDINGS: Preliminary digital blueberry grower radiograph is unremarkable. Normal bowel gas pattern. There is mild diffuse fatty infiltration of the liver. Normal adrenal glands are observed. There is no abnormality in the pancreas or gallbladder. No focal hepatic or splenic lesion is seen. The kidneys enhance symmetrically and are morphologically intact. No retroperitoneal mass or adenopathy is observed. Small and large bowel loops are normal in the abdomen and pelvis. Normal appendix is seen in the right lower quadrant. No abdominal wall defect is seen. Six seminal vesicles, prostate, and urinary bladder are unremarkable. No bony destructive lesion is appreciated. IMPRESSION: Evidence of mild fatty infiltration of the liver. Otherwise negative CT study of the abdomen and pelvis with IV contrast. Normal appendix. No mass or adenopathy seen. <Electronically signed by Mikey Cano > 11/19/20 [id number]
--- NOTE | 2020-11-20 12:47 | ED PDOC ---
Post-Departure Follow-Up erasto rojas and marily faxed formal report of cxr, ct chest for fu Iris Rodriguez MD Nov 20, 2020 12:47
== END 2020-11-19 17:30 | disposition home or self-care (01) ==
LOC: M ED 13:44
DX: R22.2 Localized swelling, mass and lump, trunk (principal); R06.02 Shortness of breath; E32.8 Other diseases of thymus; R50.9 Fever, unspecified; R05 Cough; M79.10 Myalgia, unspecified site; R19.7 Diarrhea, unspecified
CPT/HCPCS: 71045; 71260; 74177; 80047; 80076; 82550; 82553; 83615; 83735; 85025; 85652; 86140; 87804; 99284; Q9967; U0003

== ENCOUNTER → 2020-12-15 | Outpatient (REF) | payer OTHER ==
[2020-12-15 17:09] LABS: BASO # 0.1 10^3/uL (0.0-0.2); BASO % 1.1 % (0.0-1.0); EOS # 0.3 10^3/uL (0.0-0.5); EOS % 3.9 % (0.0-3.0); HEMATOCRIT 53.4 % (42.0-52.0); HEMOGLOBIN 17.2 g/dl (13.5-17.5); LYMPH # 2.5 10^3/uL (1.5-5.0); LYMPH % 30.3 % (24.0-44.0); MEAN CORPUSCULAR HEMOGLOBIN 29.7 pg (27.0-33.0); MEAN CORPUSCULAR HGB CONC 32.2 g/dl (32.0-36.5); MEAN CORPUSCULAR VOLUME 92.1 fl (80.0-96.0); MONO # 0.9 10^3/uL (0.0-0.8); NEUTROPHILS # 4.4 10^3/uL (1.5-8.5); NEUTROPHILS % 53.5 % (36.0-66.0); PLATELET COUNT, AUTOMATED 278 10^3/uL (150-450); WHITE BLOOD COUNT 8.2 10^3/uL (4.0-10.0)
== END ==
LOC: M LAB REF 16:29
PROVIDERS: ATTEND Family Medicine Addiction Medicine
DX: D75.1 Secondary polycythemia (principal)

== ENCOUNTER → 2021-07-14 | Outpatient (CLI) | payer OTHER ==
[~2021-07-14] MED LIST changes: +ISOVUE-370 76% 100ML VIAL As Ordered ONE
--- NOTE | 2021-07-14 15:48 | REP ---
INDICATION: BENIGN NEOPLASM OF MEDIASTINUM, SOB. COMPARISON: 11/19/2020. TECHNIQUE: CT chest performed following the intravenous administration of 100 cc of Isovue 370. Sagittal and coronal reconstruction images are performed. FINDINGS: Lungs: Clear, no infiltrate or nodule. Mediastinum: The cystic lesion in the left parasternal region at the level of the manubrium has decreased in size. Current measurements are 1.8 x 2.9 x 2.3 cm, previously 2.9 x 3.3 x 3.4 cm. Emy: No adenopathy. Axilla: No adenopathy. Pleura: No effusion. Heart: Not enlarged. Thoracic aorta: No aneurysm or dissection. Upper abdominal structures: There is diffuse fatty infiltration of the liver. Visualized osseous structures: Unremarkable. IMPRESSION: Left parasternal cystic lesion along the margin of the manubrium has decreased in size as discussed above. <Electronically signed by Tobin Harden > 07/14/21 [id number]
== END ==
LOC: M RAD 15:09
PROVIDERS: ATTEND Thoracic Surgery (Cardiothoracic Vascular Surgery)
DX: R93.89 Abnormal findings on diagnostic imaging of other specified body structures (principal); K76.0 Fatty (change of) liver, not elsewhere classified; D15.2 Benign neoplasm of mediastinum; R06.02 Shortness of breath
CPT/HCPCS: 71260; Q9967

== ENCOUNTER → 2022-08-24 | Outpatient (CLI) | payer OTHER | LOC: M RAD 09:56 | PROVIDERS: ATTEND Internal Medicine Critical Care Medicine | DX: D15.2 Benign neoplasm of mediastinum (principal) | CPT/HCPCS: 71260; Q9967 ==

== ENCOUNTER → 2022-10-23 | Outpatient (REF) | payer OTHER ==
[~2022-10-23] MED LIST changes: -ISOVUE-370 76% 100ML VIAL As Ordered ONE
[2022-10-23 17:29] LABS: ALBUMIN 4.1 G/DL (3.2-5.2); ALKALINE PHOSPHATASE 105 U/L (46-116); ALT/SGPT 40 U/L (7.0-40); AST/SGOT 30 U/L (<34); BILIRUBIN,TOTAL 0.3 MG/DL (0.3-1.2); BLOOD UREA NITROGEN 13 MG/DL (9-23); CALCIUM LEVEL 9.3 MG/DL (8.5-10.1); CARBON DIOXIDE LEVEL 24 MMOL/L (20-31); CHLORIDE LEVEL 104 MMOL/L (98-107); CHOLESTEROL LEVEL 179 MG/DL (<200); CHOLESTEROL RISK RATIO 4.31 (<5); CREATININE FOR GFR 1.04 MG/DL (0.70-1.30); GLOMERULAR FILTRATION RATE > 60.0 (>60); GLUCOSE, FASTING 78 MG/DL (60-100); HDL CHOLESTEROL 41.5 MG/DL (>40); LDL CHOLESTEROL 76.9 MG/DL (<100); NON-HDL-C 138 MG/DL; POTASSIUM SERUM 4.8 MMOL/L (3.5-5.1); SODIUM LEVEL 142 MMOL/L (136-145); TRIGLYCERIDES LEVEL 303 MG/DL (<150)
[2022-10-23 17:30] LABS: THYROID STIMULATING HORMONE 1.097 uIU/ML (0.55-4.78)
== END ==
LOC: M LAB REF 16:36
PROVIDERS: ATTEND Family Medicine Addiction Medicine
DX: F52.21 Male erectile disorder (principal); Z68.41 Body mass index [BMI] 40.0-44.9, adult

== ENCOUNTER → 2022-12-06 | Outpatient (CLI) | payer OTHER ==
[~2022-12-06] MED LIST changes: +NYST-38; -NYST50SS
== END ==
LOC: M CARPUL 13:07
PROVIDERS: ATTEND Internal Medicine Critical Care Medicine
DX: R91.8 Other nonspecific abnormal finding of lung field (principal)

== ENCOUNTER → 2023-10-08 | Outpatient (CLI) | payer OTHER | LOC: M RAD 08:20 | PROVIDERS: ATTEND Internal Medicine Critical Care Medicine | DX: R91.8 Other nonspecific abnormal finding of lung field (principal) ==

== ENCOUNTER → 2023-12-23 | Outpatient (REF) | payer OTHER ==
[2023-12-23 13:37] LABS: BASO # 0.1 10^3/uL (0.0-0.2); BASO % 0.7 % (0.0-1.0); EOS # 0.3 10^3/uL (0.0-0.5); EOS % 3.1 % (0.0-3.0); HEMATOCRIT 51.2 % (42.0-52.0); LYMPH # 3.3 10^3/uL (1.5-5.0); LYMPH % 36.5 % (24.0-44.0); MEAN CORPUSCULAR HGB CONC 33.2 g/dl (32.0-36.5); MEAN CORPUSCULAR VOLUME 90.5 fl (80.0-96.0); MONO # 0.7 10^3/uL (0.0-0.8); MONO % 7.3 % (2.0-8.0); NEUTROPHILS # 4.8 10^3/uL (1.5-8.5); NEUTROPHILS % 52.2 % (36.0-66.0); PLATELET COUNT, AUTOMATED 297 10^3/uL (150-450); RED BLOOD COUNT 5.66 10^6/uL (4.30-6.10); WHITE BLOOD COUNT 9.1 10^3/uL (4.0-10.0)
[2023-12-23 13:46] LABS: CHOLESTEROL RISK RATIO 4.53 (<5); HDL CHOLESTEROL 40.8 MG/DL (>40); LDL CHOLESTEROL 102.4 MG/DL (<100); NON-HDL-C 144.2 MG/DL
[2023-12-24 23:07] LABS: PSA TOTAL 0.6 ng/mL (0.0-4.0)
== END ==
LOC: M LAB REF 12:36
PROVIDERS: ATTEND Family Medicine Addiction Medicine
DX: R79.89 Other specified abnormal findings of blood chemistry (principal); E78.5 Hyperlipidemia, unspecified

== ENCOUNTER → 2024-04-06 | Outpatient (REF) | payer OTHER ==
[2024-04-06 13:04] LABS: ALBUMIN 4.2 G/DL (3.2-5.2); ALKALINE PHOSPHATASE 83 U/L (46-116); ALT/SGPT 57 U/L (7.0-40); AST/SGOT 28 U/L (<34); BLOOD UREA NITROGEN 14 MG/DL (9-23); CARBON DIOXIDE LEVEL 29 MMOL/L (20-31); CHLORIDE LEVEL 104 MMOL/L (98-107); CHOLESTEROL LEVEL 172 MG/DL (<200); CHOLESTEROL RISK RATIO 5.18 (<5); CREATININE FOR GFR 1.05 MG/DL (0.70-1.30); GLOMERULAR FILTRATION RATE > 60.0 (>60); GLUCOSE, FASTING 86 MG/DL (60-100); HDL CHOLESTEROL 33.2 MG/DL (>40); LDL CHOLESTEROL 101.6 MG/DL (<100); NON-HDL-C 138.8 MG/DL; POTASSIUM SERUM 4.1 MMOL/L (3.5-5.1); SODIUM LEVEL 138 MMOL/L (136-145); TOTAL PROTEIN 6.9 G/DL (5.7-8.2); TRIGLYCERIDES LEVEL 186 MG/DL (<150)
[2024-04-06 13:06] LABS: FREE T4 1.13 NG/DL (0.89-1.76); THYROID STIMULATING HORMONE 0.674 uIU/ML (0.55-4.78)
[2024-04-06 13:07] LABS: TESTOSTERONE 277 NG/DL (241-827)
== END ==
LOC: M LAB REF 11:52
PROVIDERS: ATTEND Family Medicine Addiction Medicine
DX: R79.89 Other specified abnormal findings of blood chemistry (principal); Z68.43 Body mass index [BMI] 50.0-59.9, adult

== ENCOUNTER → 2024-06-02 | Outpatient (REF) | payer OTHER ==
[2024-06-02 14:24] LABS: ALBUMIN 4.1 G/DL (3.2-5.2); ALKALINE PHOSPHATASE 82 U/L (46-116); ALT/SGPT 38 U/L (7.0-40); AST/SGOT 19 U/L (<34); BILIRUBIN,TOTAL 0.4 MG/DL (0.3-1.2); BLOOD UREA NITROGEN 18 MG/DL (9-23); CALCIUM LEVEL 9.5 MG/DL (8.5-10.1); CARBON DIOXIDE LEVEL 29 MMOL/L (20-31); CHLORIDE LEVEL 106 MMOL/L (98-107); CHOLESTEROL LEVEL 185 MG/DL (<200); CHOLESTEROL RISK RATIO 5.05 (<5); GLOMERULAR FILTRATION RATE > 60.0 (>60); GLUCOSE, FASTING 85 MG/DL (60-100); HDL CHOLESTEROL 36.6 MG/DL (>40); LDL CHOLESTEROL 113.8 MG/DL (<100); NON-HDL-C 148.4 MG/DL; POTASSIUM SERUM 4.5 MMOL/L (3.5-5.1); SODIUM LEVEL 142 MMOL/L (136-145); TOTAL PROTEIN 7.2 G/DL (5.7-8.2); TRIGLYCERIDES LEVEL 173 MG/DL (<150)
[2024-06-02 14:25] LABS: THYROID STIMULATING HORMONE 1.949 uIU/ML (0.55-4.78)
[2024-06-02 14:26] LABS: TESTOSTERONE 241 NG/DL (241-827)
[2024-06-02 14:51] LABS: HIV 1&2 SCREEN NEGATIVE (NEGATIVE)
== END ==
LOC: M LAB REF 13:05
PROVIDERS: ATTEND Family Medicine Addiction Medicine
DX: E78.5 Hyperlipidemia, unspecified (principal); E29.1 Testicular hypofunction

== ENCOUNTER → 2024-06-12 | Outpatient (REF) | payer OTHER ==
[2024-06-12 17:58] LABS: FOLLICLE STIMULATING HORMONE 3.7 mIU/ML (1.4-18.1)
== END ==
LOC: M LAB REF 16:18
PROVIDERS: ATTEND Family Medicine Addiction Medicine
DX: E29.1 Testicular hypofunction (principal)

== ENCOUNTER → 2024-07-13 | Outpatient (REF) | payer OTHER | LOC: M LAB REF 16:16 | PROVIDERS: ATTEND Family Medicine Addiction Medicine | DX: R79.89 Other specified abnormal findings of blood chemistry (principal) ==

== ENCOUNTER 2024-07-17 07:26 | Emergency (ER) | payer OTHER ==
[~2024-07-17] VITALS: Ht 177.8 cm; Wt 133.2 kg
[2024-07-17] MEDS ORDERED: TEST200I14 (07:35)
[2024-07-17 08:05] LABS: BASO # 0.1 10^3/uL (0.0-0.2); BASO % 0.7 % (0.0-1.0); EOS # 0.2 10^3/uL (0.0-0.5); EOS % 2.5 % (0.0-3.0); HEMATOCRIT 50.7 % (42.0-52.0); HEMOGLOBIN 16.9 g/dl (13.5-17.5); LYMPH # 2.4 10^3/uL (1.5-5.0); MEAN CORPUSCULAR HEMOGLOBIN 29.9 pg (27.0-33.0); MEAN CORPUSCULAR HGB CONC 33.3 g/dl (32.0-36.5); MEAN CORPUSCULAR VOLUME 89.6 fl (80.0-96.0); MONO # 0.9 10^3/uL (0.0-0.8); MONO % 8.9 % (2.0-8.0); NEUTROPHILS % 62.6 % (36.0-66.0); PLATELET COUNT, AUTOMATED 261 10^3/uL (150-450); RED BLOOD COUNT 5.66 10^6/uL (4.30-6.10); WHITE BLOOD COUNT 9.6 10^3/uL (4.0-10.0)
[2024-07-17 08:27] LABS: ALBUMIN 4.2 G/DL (3.2-5.2); BILIRUBIN,DIRECT 0.2 MG/DL (<0.4); BILIRUBIN,TOTAL 0.6 MG/DL (0.3-1.2); TOTAL PROTEIN 7.2 G/DL (5.7-8.2)
[2024-07-17] MEDS: LIDOCAINE VISCOUS 2% SOLN 15ML UDC PO ONE (10:51)
[2024-07-17] MEDS: MAALOX 30 ML SUSP *UDC PO ONE (10:51)
[2024-07-17 12:09] VITALS: BP 130/76; TEMP 97.5; O2SAT 97
== END 2024-07-17 12:11 | disposition home or self-care (01) ==
LOC: M ED 07:26
DX: R10.13 Epigastric pain (principal)

== ENCOUNTER → 2024-11-13 | Outpatient (REF) | payer OTHER ==
[~2024-11-13] MED LIST changes: +TEST200I14
[2024-11-13 13:36] LABS: BASO # 0.1 10^3/uL (0.0-0.2); BASO % 0.7 % (0.0-1.0); EOS # 0.3 10^3/uL (0.0-0.5); EOS % 4.2 % (0.0-3.0); HEMATOCRIT 49.7 % (42.0-52.0); HEMOGLOBIN 16.4 g/dl (13.5-17.5); LYMPH # 2.4 10^3/uL (1.5-5.0); LYMPH % 32.2 % (24.0-44.0); MEAN CORPUSCULAR HEMOGLOBIN 29.5 pg (27.0-33.0); MEAN CORPUSCULAR VOLUME 89.4 fl (80.0-96.0); MONO # 0.8 10^3/uL (0.0-0.8); MONO % 10.6 % (2.0-8.0); NEUTROPHILS # 3.8 10^3/uL (1.5-8.5); NEUTROPHILS % 52.2 % (36.0-66.0); PLATELET COUNT, AUTOMATED 267 10^3/uL (150-450); RED BLOOD COUNT 5.56 10^6/uL (4.30-6.10); WHITE BLOOD COUNT 7.4 10^3/uL (4.0-10.0)
[2024-11-13 14:00] LABS: ALBUMIN 3.9 G/DL (3.2-5.2); ALKALINE PHOSPHATASE 78 U/L (40-129); ALT/SGPT 42 U/L (7.0-40); AST/SGOT 24 U/L (<34); BILIRUBIN,TOTAL 0.8 MG/DL (0.3-1.2); BLOOD UREA NITROGEN 16 MG/DL (9-23); CALCIUM LEVEL 8.9 MG/DL (8.5-10.1); CARBON DIOXIDE LEVEL 29 MMOL/L (20-31); CHLORIDE LEVEL 109 MMOL/L (98-107); CHOLESTEROL LEVEL 205 MG/DL (<200); CHOLESTEROL RISK RATIO 4.72 (<5); CREATININE FOR GFR 1.07 MG/DL (0.70-1.30); GLOMERULAR FILTRATION RATE > 60.0 (>60); GLUCOSE, FASTING 91 MG/DL (60-100); HDL CHOLESTEROL 43.4 MG/DL (>40); LDL CHOLESTEROL 118.6 MG/DL (<100); NON-HDL-C 161.6 MG/DL; POTASSIUM SERUM 4.3 MMOL/L (3.5-5.1); SODIUM LEVEL 141 MMOL/L (136-145); TRIGLYCERIDES LEVEL 215 MG/DL (<150)
[2024-11-13 14:05] LABS: FREE T4 1.11 NG/DL (0.89-1.76)
[2024-11-13 14:06] LABS: THYROID STIMULATING HORMONE 1.089 uIU/ML (0.55-4.78)
[2024-11-13 14:09] LABS: TESTOSTERONE 412 NG/DL (241-827)
== END ==
LOC: M LAB REF 13:05
PROVIDERS: ATTEND Family Medicine Addiction Medicine
DX: R79.89 Other specified abnormal findings of blood chemistry (principal); Z68.43 Body mass index [BMI] 50.0-59.9, adult

== ENCOUNTER 2025-09-18 10:56 | Emergency (ER) | payer OTHER ==
[~2025-09-18] VITALS: Ht 175.3 cm; Wt 126.0 kg
[2025-09-18 10:59] VITALS: TEMP 98.1
[2025-09-18 11:45] LABS: BASO # 0.1 10^3/uL (0.0-0.2); BASO % 0.6 % (0.0-1.0); EOS # 0.4 10^3/uL (0.0-0.5); EOS % 2.6 % (0.0-3.0); LYMPH # 2.0 10^3/uL (1.5-5.0); LYMPH % 13.4 % (24.0-44.0); MONO # 0.9 10^3/uL (0.0-0.8); MONO % 6.0 % (2.0-8.0); NEUTROPHILS # 11.5 10^3/uL (1.5-8.5); NEUTROPHILS % 77.1 % (36.0-66.0); PLATELET COUNT, AUTOMATED 287 10^3/uL (150-450)
[2025-09-18] MEDS: ONDANSETRON 4MG/2ML VIAL IV ONE (11:45)
[2025-09-18] MEDS: FAMOTIDINE 20 MG/2 ML VIAL IVP ONE (11:45)
[2025-09-18] MEDS: NS (Normal Saline) 0.9% 1,000 ML IV ONE (11:45)
[2025-09-18] MEDS ORDERED: ISOVUE-370 76% 100 ML VIAL As Ordered ONE (11:56)
[2025-09-18 12:11] LABS: ALT/SGPT 39 U/L (7.0-40); AST/SGOT 26 U/L (<34); CALCIUM LEVEL 8.7 MG/DL (8.5-10.1); CARBON DIOXIDE LEVEL 29 MMOL/L (20-31); CHLORIDE LEVEL 102 MMOL/L (98-107); CREATININE FOR GFR 1.11 MG/DL (0.70-1.30); GLOMERULAR FILTRATION RATE > 90.0 (>60); POTASSIUM SERUM 4.0 MMOL/L (3.5-5.1); SODIUM LEVEL 140 MMOL/L (136-145)
[2025-09-18 12:54] LABS: KETONE, URINE AUTO RFX NEGATIVE (NEGATIVE); LEUKOCYTE ESTERASE UR AUTO RFX NEGATIVE (NEGATIVE); MUCUS, URINE RFX SMALL (NEGATIVE); NITRITE, URINE AUTO RFX NEGATIVE (NEGATIVE); RBC, URINE AUTO RFX 0 /HPF (0-3); SQUAM EPITHELIAL CELL UR AURFX 0 /HPF (0-6); WBC, URINE AUTO RFX 0 /HPF (0-3)
[2025-09-18] MEDS ORDERED: METR375C3 PO (13:15)
[2025-09-18] MEDS ORDERED: CIPR-249 PO (13:15)
[2025-09-18 13:23] VITALS: BP 135/75; O2SAT 99
== END 2025-09-18 13:58 | disposition home or self-care (01) ==
LOC: M ED 12:37
DX: R11.10 Vomiting, unspecified (principal); Z53.9 Procedure and treatment not carried out, unspecified reason; F41.9 Anxiety disorder, unspecified; Z85.828 Personal history of other malignant neoplasm of skin
CPT/HCPCS: 71046; 74177; 80047; 80048; 80076; 81001; 83605; 83690; 85025; 87507; 93005; 93041; 96361; 96374; 96375; 99284; J1308; J2405; Q9967